=== PATIENT | female | born 1970 | race Hispanic/Latino ===

== ENCOUNTER → 2017-08-03 | Day surgery (SDC) | payer OTHER ==
[~2017-08-03] MED LIST: Lactated Ringer's 1,000 ML IV ONE; Midazolam 2 MG/2 ML VIAL ONE; Propofol 10 mg/ml Inj (20 ML) ONE
[2017-08-03 13:36] VITALS: TEMP 98
[2017-08-03 13:42] VITALS: BP 112/67; PULSE 70; RESP 15; O2SAT 100
== END | disposition home or self-care (01) ==
LOC: H.ENDO 09:46
PROVIDERS: ATTEND Internal Medicine Gastroenterology
DX: Z80.0 Family history of malignant neoplasm of digestive organs (principal); K64.8 Other hemorrhoids
CPT/HCPCS: G0105; J2250; J2704; J7120